=== PATIENT | female | born 1945 | race Asian ===

== ENCOUNTER 2017-08-05 09:43 | Day surgery (SDC) | payer MEDICARE, OTHER ==
[~2017-08-05] VITALS: Ht 160 cm; Wt 60.5 kg
[~2017-08-05 09:43] MED LIST: AMLO-511 PO; ASCO500 PO; ASPI-1182 PO; BIOT50002 PO; CALC-789 PO; CETI-290 PO; CYAN50008 PO; DICLOFENAC SODIUM 0.1% 2.5 ML OPHTHALMIC SOLUTION ONE; FISH1CAP63 PO; FLAX100030 PO; GLUC-206 PO; IBUP-2354 PO; MAGN250T2 PO; MOXIFLOXACIN HCL 0.5% 3 ML OPHTHALMIC SOLUTION ONE; MULT-1251 PO; PHENYLEPHRINE HCL 2.5% 2 ML OPHTHALMIC SOLUTION ONE; PRAV40TA4 PO; SODIUM CHLORIDE 0.9% 500 ML IV ONE; TRIA1TAB93 PO; TROPICAMIDE 1% 2 ML OPHTHALMIC SOLUTION ONE; VALS80TA2 PO; VITA400C70 PO; VITAD1000 PO; ZINC50TA38 PO
[2017-08-05] MEDS ORDERED: POVIDONE-IODINE 10% 15 ML SOLUTION UD TP ONE (09:44)
[2017-08-05] MEDS ORDERED: DEXAMETHASONE SOD PHOS 4 MG/ML VIAL IVP ONE (09:44)
[2017-08-05] MEDS ORDERED: HYALURONATE SOD/CHONDROITIN SOD 0.5 ML VIAL IO ONE (09:44)
[2017-08-05] MEDS ORDERED: TETRACAINE HCL VISCOUS 0.5% 5 ML OPHTHALMIC SOLUTION OS ONE (09:44)
[2017-08-05] MEDS ORDERED: LIDOCAINE HCL/PF 1% 2 ML VIAL IM ONE (09:44)
[2017-08-05] MEDS ORDERED: HYALURONATE SODIUM 12 MG/ML 0.8 ML SYRINGE IO ONE (09:44)
[2017-08-05] MEDS ORDERED: MIDAZOLAM HCL 2 MG/2 ML VIAL IVP ONE (09:44)
[2017-08-05] MEDS ORDERED: BALANCED SALT 15 ML OPHTHALMIC IRRIG.SOLN OS ONE (09:44)
[2017-08-05] MEDS ORDERED: FentaNYL CITRATE-PF 100 MCG/2 ML VIAL IVP ONE (09:44)
[2017-08-05] MEDS ORDERED: MOXIFLOXACIN HCL 0.5% 3 ML OPHTHALMIC SOLUTION OD ONE (10:00)
[2017-08-05] MEDS ORDERED: DICLOFENAC SODIUM 0.1% 2.5 ML OPHTHALMIC SOLUTION OD ONE (10:00)
[2017-08-05] MEDS: TROPICAMIDE 1% 2 ML OPHTHALMIC SOLUTION OD SCH ×2 (10:27→10:32)
[2017-08-05] MEDS: PHENYLEPHRINE HCL 2.5% 2 ML OPHTHALMIC SOLUTION OD SCH ×2 (10:28→10:32)
[2017-08-05] MEDS ORDERED: RINGERS SOLUTION,LACTATED 500 ML IV ONE (10:30)
[2017-08-05] MEDS ORDERED: SODIUM CHLORIDE 0.9% 500 ML IV ONE (10:45)
== END 2017-08-05 11:55 | disposition home or self-care (01) ==
LOC: SURGERY 09:43
PROVIDERS: ATTEND Specialist
DX: H25.011 Cortical age-related cataract, right eye (principal); M17.12 Unilateral primary osteoarthritis, left knee; K21.9 Gastro-esophageal reflux disease without esophagitis; I10 Essential (primary) hypertension; E78.00 Pure hypercholesterolemia, unspecified; Z87.891 Personal history of nicotine dependence; Z79.82 Long term (current) use of aspirin; Z79.1 Long term (current) use of non-steroidal anti-inflammatories (NSAID); Z98.890 Other specified postprocedural states; Z91.048 Other nonmedicinal substance allergy status; Z79.899 Other long term (current) drug therapy
CPT/HCPCS: 66984; C1780; J1100; J2250; J3010; J3490 ×2; J7040

== ENCOUNTER 2017-09-30 06:09 | Day surgery (SDC) | payer MEDICARE, OTHER ==
[~2017-09-30] VITALS: Ht 160 cm; Wt 61.8 kg
[~2017-09-30 06:09] MED LIST changes: +DICLOFENAC SODIUM 0.1% 2.5 ML OPHTHALMIC SOLUTION OS ONE; +MOXIFLOXACIN HCL 0.5% 3 ML OPHTHALMIC SOLUTION OS ONE; +RINGERS SOLUTION,LACTATED 500 ML IV ONE; -SODIUM CHLORIDE 0.9% 500 ML IV ONE
[2017-09-30] MEDS ORDERED: MIDAZOLAM HCL 2 MG/2 ML VIAL IVP ONE (06:10)
[2017-09-30] MEDS ORDERED: FentaNYL CITRATE-PF 100 MCG/2 ML VIAL IVP ONE (06:10)
[2017-09-30] MEDS: TROPICAMIDE 1% 2 ML OPHTHALMIC SOLUTION OS SCH ×2 (06:54→06:59)
[2017-09-30] MEDS: PHENYLEPHRINE HCL 2.5% 2 ML OPHTHALMIC SOLUTION OS SCH ×2 (06:54→06:59)
== END 2017-09-30 09:00 | disposition home or self-care (01) ==
LOC: SDS 06:09
PROVIDERS: ATTEND Specialist
DX: H25.012 Cortical age-related cataract, left eye (principal); I10 Essential (primary) hypertension; E78.00 Pure hypercholesterolemia, unspecified; M17.12 Unilateral primary osteoarthritis, left knee; K21.9 Gastro-esophageal reflux disease without esophagitis; Z98.41 Cataract extraction status, right eye; Z79.82 Long term (current) use of aspirin; Z79.1 Long term (current) use of non-steroidal anti-inflammatories (NSAID); Z79.899 Other long term (current) drug therapy; Z90.89 Acquired absence of other organs; Z98.890 Other specified postprocedural states
CPT/HCPCS: 66984; 93005; C1780; J2250; J3010; J7120